=== PATIENT | female | born 1975 | race Caucasian/White ===

== ENCOUNTER 2016-11-17 17:34 | Outpatient (CLI) | payer OTHER | END 2016-11-17 17:35 | disposition home or self-care (01) | DX: M79.89 Other specified soft tissue disorders (principal) ==

== ENCOUNTER 2017-05-26 21:11 | Emergency (ER) | payer OTHER ==
[2017-05-26] MEDS ORDERED: DEXAMETHASONE 10 MG/ML VIAL PO STA (21:58)
[2017-05-26] MEDS ORDERED: CYCLOBENZAPRINE 10 MG TABLET PO STA (21:58)
[2017-05-26] MEDS ORDERED: oxyCOD/ACETAMIN 5 MG/325 MG TABLET PO STA (21:58)
[2017-05-26] MEDS ORDERED: CHERRY SYRUP 10 ML UDC PO ONE (22:11)
[2017-05-26] MEDS ORDERED: DEXAMETHASONE 10 MG/ML VIAL ONE (22:11)
[2017-05-26] MEDS ORDERED: CYCLOBENZAPRINE 10 MG TABLET PO ONE (22:11)
[2017-05-26] MEDS ORDERED: oxyCOD/ACETAMIN 5 MG/325 MG TABLET PO ONE (22:11)
--- NOTE | 2017-05-26 22:22 | ED Physician Documentation ---
PD HPI BACK INJURY - Stated complaint Stated Complaint: GLF/BACK PX - History obtained from History obtained from: Patient - History of Present Illness Location: Right, Lower Type of injury: Fall Where injury occurred: Home Timing - onset: Last night Timing - duration: Days (1) Timing - details: Gradual onset Pain level max: 8 Pain level now: 6 Quality: Pain, Spasm, Similar to prior episodes Improved by: Rest Worsened by: Moving Associated symptoms: No: Fever, Weakness, Numbness, Incontinent of urine, Unable to urinate, Hematuria, Incontinent of stool Similar symptoms before: Diagnosis (chronic back pain) Recently seen: Not recently seen - Additional information Additional information: Patient is a 41-year-old female who presents to the emergency department after a fall last night, she has hip and back pain. Not relieved by Aleve earlier today. Has a history of chronic back pain in the past. Pain is radiating down the right leg occasionally Review of Systems Constitutional: denies: Fever, Chills Nose: denies: Rhinorrhea / runny nose, Congestion Cardiac: denies: Chest pain / pressure Respiratory: denies: Cough GI: denies: Nausea, Vomiting, Diarrhea Skin: denies: Rash Musculoskeletal: denies: Neck pain Neurologic: denies: Focal weakness, Numbness, Seizure, Confused, Altered mental status, Headache PD PAST MEDICAL HISTORY - Past Medical History Past Medical History: Yes GI: None Psych: Anxiety Musculoskeletal: Chronic back pain, Other Other Past Medical History: Arthritis - Past Surgical History 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 HEENT: Myringotomy (tubes), Tonsil/Adenoidectomy - Present Medications Home Medications: Ambulatory Orders Medication Instructions Recorded Confirmed Cyclobenzaprine [Flexeril] 10 mg PO TID PRN #20 tablet 07/27/16 HYDROcod/ACETAM 5/325 [[place] 5/325] 1 - 2 ea PO Q6H PRN #14 tablet 07/27/16 Cyclobenzaprine [Flexeril] 10 mg PO TID PRN #20 tablet 05/26/17 Hydrocodone/Acetaminophen 1 - 2 each PO Q6H PRN #14 tablet 05/26/17 [Hydrocodon-Acetaminophen 5-325] - Allergies Allergies/Adverse Reactions: Allergies Allergy/AdvReac Type Severity Reaction Status Date / Time codeine Allergy Itching Verified 07/27/16 15:34 - Social History Does the pt smoke?: Yes Smoking Status: Current every day smoker Does the pt drink ETOH?: No Does the pt have substance abuse?: No - Immunizations Immunizations are current?: Yes - POLST Patient has POLST: No PD ED PE NORMAL - Vitals Vital signs reviewed: Yes - General General: Alert and oriented X 3, No acute distress, Well developed/nourished - HEENT HEENT: Atraumatic, PERRL, EOMI, Moist mucous membranes - Neck Neck: Supple, no meningeal sign, No bony TTP - Cardiac Cardiac: RRR, Strong equal pulses - Respiratory Respiratory: No respiratory distress, Clear bilaterally - Abdomen Abdomen: Soft, Non tender, Non distended - Back Back: No spinal TTP, Other (No midline spinal tenderness to palpation or percussion. Paraspinal spasm present right low thoracic through the low lumbar area.) - Derm Derm: Warm and dry - Extremities Extremities: Other (normal bilateral lower extremity patellar and ankle jerk reflexes. Normal great toe extension bilaterally) - Neuro Neuro: Alert and oriented X 3, administrative office assistant 2-12 intact, No motor deficit, No sensory deficit, Normal speech - Psych Psych: Normal mood, Normal affect Results - Vitals Vitals: Vital Signs - 24 hr 05/26/17 05/26/17 21:23 22:49 Temperature 36.6 C 36.4 C L Heart Rate 87 74 Respiratory 16 16 Rate Blood Pressure 128/78 118/79 O2 Saturation 100 97 Oxygen O2 Source Room air PD MEDICAL DECISION MAKING - ED course Complexity details: re-evaluated patient, considered differential (no cauda equina, no spinal epidural abscess, no fracture, no aortic dissection or evidence of aneursym rupture), d/w patient ED course: Patient is a 41-year-old female with acute on chronic back pain. Pain well controlled in the emergency department. Also appears to have a component was sciatica. Will trial on pain medications at home. No evidence of cauda equina, epidural abscess, fracture. Ambulating well and without a limp. Patient counseled regarding signs and symptoms for which I believe and urgent re- evaluation would be necessary. Patient with good understanding of and agreement to plan and is comfortable going home at this time This document was made in part using voice recognition software. While efforts are made to proofread this document, sound alike and grammatical errors may occur. Departure - Departure Disposition: 01 Home, Self Care Clinical Impression: Low back strain Qualifiers: Encounter type: initial encounter Qualified Code(s): S39.012A - Strain of muscle, fascia and tendon of lower back, initial encounter Sciatica Qualifiers: Laterality: right Qualified Code(s): M54.31 - Sciatica, right side Condition: Good Instructions: ED Sciatica, ED Low Back Pain Injury Follow-Up: RAMIRO GARCIA [Primary Care Provider] - Within 1 week Prescriptions: Cyclobenzaprine [Flexeril] 10 mg PO TID PRN #20 tablet PRN Reason: Spasms Hydrocodone/Acetaminophen [Hydrocodon-Acetaminophen 5-325] 1 - 2 each PO Q6H PRN #14 tablet PRN Reason: pain Comments: Return if you worsen. This should improve over the next few days. Do not drive or operate heavy machinery while taking the Flexeril or hydrocodone. Do not drink alcohol or drive while on narcotic pain medicine. Note that many narcotic pain relievers also contain tylenol/acetaminophen. Please ensure that your total dose of acetaminophen from all sources does not exceed 3 grams (3000mg) per day. You may constipated on this medication, take a stool softener such as "Colace" twice a day while you are on it. Also recommend a [id number] laxative such as senna or MiraLAX any day that you do not have a bowel movement. If you received narcotic pain medication in the emergency department, do not drive or operate machinery for the next 24 hours. Discharge Date/Time: 05/26/17 22:49
[2017-05-26 22:54] VITALS: BP 118/79
== END 2017-05-26 22:49 | disposition home or self-care (01) ==
LOC: ED 21:11
DX: S39.012A Strain of muscle, fascia and tendon of lower back, initial encounter (principal); W01.0XXA Fall on same level from slipping, tripping and stumbling without subsequent striking against object, initial encounter; Y92.019 Unspecified place in single-family (private) house as the place of occurrence of the external cause; M54.31 Sciatica, right side; M19.90 Unspecified osteoarthritis, unspecified site; F17.200 Nicotine dependence, unspecified, uncomplicated
CPT/HCPCS: 99283; A9270

== ENCOUNTER 2017-07-08 13:06 | Emergency (ER) | payer OTHER ==
--- NOTE | 2017-07-08 14:19 | ED Physician Documentation ---
PD HPI BACK PAIN - Stated complaint Stated Complaint: BACK PX - Chief complaint Chief Complaint: Back Pain - History obtained from History obtained from: Patient, Family - History of Present Illness Timing - onset: How many days ago (3) Timing - duration: Days (3) Timing - details: Gradual onset Pain level max: 9 Pain level now: 9 Location: Lower, Right, Left Quality: Pain, Spasm, Similar to prior episodes Associated symptoms: No: Fever, Weakness, Numbness, Incontinent of urine, Unable to urinate, Hematuria, Incontinent of stool Improves with: Rest Worsened by: Movement Contributing factors: Other (doesn't recall an injury) Similar symptoms before: Diagnosis ("bulging discs in my lumbar spine") Recently seen: Not recently seen - Additional information Additional information: Patient is a 42-year-old female presents to the emergency department complaining of increased lower back pain. Has a history of chronic back pain. Review of Systems Constitutional: denies: Fever, Chills Ears: denies: Ear pain Nose: denies: Rhinorrhea / runny nose, Congestion Throat: denies: Sore throat Cardiac: denies: Chest pain / pressure Respiratory: denies: Cough GI: denies: Abdominal Pain, Nausea, Vomiting, Diarrhea : denies: Dysuria, Frequency, Hesitancy, Now EGA Skin: denies: Rash Musculoskeletal: denies: Neck pain Neurologic: denies: Focal weakness, Numbness, Headache PD PAST MEDICAL HISTORY - Past Medical History Past Medical History: Yes GI: None Psych: Anxiety Musculoskeletal: Chronic back pain, Other - Past Surgical History 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 HEENT: Myringotomy (tubes), Tonsil/Adenoidectomy - Present Medications Home Medications: Ambulatory Orders Medication Instructions Recorded Confirmed Cyclobenzaprine [Flexeril] 10 mg PO TID PRN #20 tablet 07/08/17 Meloxicam [Mobic] 7.5 mg PO BID PRN #20 tablet 07/08/17 Oxycodone HCl/Acetaminophen 1 - 2 each PO Q6H PRN #14 tablet 07/08/17 [Percocet 5-325 mg Tablet] busPIRone [Buspar] 15 mg ORAL BID 07/08/17 07/08/17 - Allergies Allergies/Adverse Reactions: Allergies Allergy/AdvReac Type Severity Reaction Status Date / Time codeine Allergy Itching Verified 07/08/17 13:37 hydrocodone Allergy Headache Verified 07/08/17 13:37 - Social History Does the pt smoke?: Yes Smoking Status: Current every day smoker Does the pt drink ETOH?: No Does the pt have substance abuse?: No - Immunizations Immunizations are current?: Yes - POLST Patient has POLST: No PD ED PE NORMAL - Vitals Vital signs reviewed: Yes - General General: Alert and oriented X 3, No acute distress - HEENT HEENT: Moist mucous membranes - Neck Neck: Supple, no meningeal sign, No bony TTP - Cardiac Cardiac: RRR - Respiratory Respiratory: No respiratory distress, Clear bilaterally - Abdomen Abdomen: Soft, Non tender, Non distended - Back Back: No spinal TTP - Derm Derm: Warm and dry - Extremities Extremities: No tenderness to palpate, Normal ROM s pain, Other (normal bilateral lower extremity patellar and ankle jerk reflexes. Normal great toe extension bilaterally) - Neuro Neuro: Alert and oriented X 3, clinical laboratory scientist 2-12 intact, No motor deficit, No sensory deficit, Normal speech - Psych Psych: Normal mood, Normal affect Results - Vitals Vitals: Vital Signs - 24 hr 07/08/17 07/08/17 13:16 15:08 Temperature 36.8 C Heart Rate 96 73 Respiratory 18 16 Rate Blood Pressure 129/74 104/70 O2 Saturation 98 99 Oxygen O2 Source Room air PD MEDICAL DECISION MAKING - ED course Complexity details: re-evaluated patient, considered differential (no cauda equina, no spinal epidural abscess, no fracture, no aortic dissection or evidence of aneursym rupture), d/w patient, d/w family ED course: Patient is a 42-year-old female with acute on chronic back pain. She was given Toradol, oxycodone, dexamethasone and Flexeril here. Pain greatly improved. Will place on pain medication and muscle relaxants for home and follow-up with her PCP. She does have a long history of back pain. Does not use IV drugs. No evidence of cauda equina or epidural abscess. Patient counseled regarding signs and symptoms for which I believe and urgent re-evaluation would be necessary. Patient with good understanding of and agreement to plan and is comfortable going home at this time This document was made in part using voice recognition software. While efforts are made to proofread this document, sound alike and grammatical errors may occur. Departure - Departure Disposition: 01 Home, Self Care Clinical Impression: Low back strain Qualifiers: Encounter type: initial encounter Qualified Code(s): S39.012A - Strain of muscle, fascia and tendon of lower back, initial encounter Condition: Good Instructions: ED Sprain Strain Lumbar Follow-Up: RAMIRO GARCIA [Primary Care Provider] - Within 1 week Prescriptions: Cyclobenzaprine [Flexeril] 10 mg PO TID PRN #20 tablet PRN Reason: Spasms Meloxicam [Mobic] 7.5 mg PO BID PRN #20 tablet PRN Reason: back pain Oxycodone HCl/Acetaminophen [Percocet 5-325 mg Tablet] 1 - 2 each PO Q6H PRN # 14 tablet PRN Reason: pain Comments: Return if you worsen. This should improve over the next few days. Do not drink alcohol or drive while on narcotic pain medicine. Note that many narcotic pain relievers also contain tylenol/acetaminophen. Please ensure that your total dose of acetaminophen from all sources does not exceed 3 grams (3000mg) per day. You may constipated on this medication, take a stool softener such as "Colace" twice a day while you are on it. Also recommend a [id number] laxative such as senna or MiraLAX any day that you do not have a bowel movement. If you received narcotic pain medication in the emergency department, do not drive or operate machinery for the next 24 hours. Discharge Date/Time: 07/08/17 15:08
[2017-07-08] MEDS ORDERED: oxyCODONE 5 MG TABLET ONE (14:34)
[2017-07-08] MEDS ORDERED: DEXAMETHASONE 10 MG/ML VIAL ONE (14:35)
[2017-07-08] MEDS ORDERED: CYCLOBENZAPRINE 10 MG TABLET PO ONE (14:35)
[2017-07-08] MEDS ORDERED: KETOROLAC 60 MG/2 ML VIAL ONE (14:35)
[2017-07-08] MEDS: oxyCODONE 5 MG TABLET PO STA (14:40)
[2017-07-08] MEDS: CYCLOBENZAPRINE 10 MG TABLET PO STA (14:40)
[2017-07-08] MEDS: DEXAMETHASONE 10 MG/ML VIAL PO STA (14:40)
[2017-07-08] MEDS: KETOROLAC 60 MG/2 ML VIAL IM STA (14:41)
[2017-07-08 15:09] VITALS: BP 104/70
== END 2017-07-08 15:08 | disposition home or self-care (01) ==
LOC: ED 13:06
DX: S39.012A Strain of muscle, fascia and tendon of lower back, initial encounter (principal); X58.XXXA Exposure to other specified factors, initial encounter; G89.29 Other chronic pain; F17.200 Nicotine dependence, unspecified, uncomplicated
CPT/HCPCS: 96372; 99282; 99284

== ENCOUNTER 2017-11-18 07:18 | Emergency (ER) | payer OTHER ==
[2017-11-18] MEDS ORDERED: ACETAMINOPHEN 1,000 MG/100 ML 100 ML IV STA (07:40)
--- NOTE | 2017-11-18 07:44 | ED Physician Documentation ---
History of Present Illness - Stated complaint Stated Complaint: ABD PX - Chief complaint Chief Complaint: Abd Pain - Additonal information Additional information: hx from pt 42 female s/p tubal ligation no other abd surgeries LMP 11/04 but then spotting about a week later which is unusual no vag dc awakened today with RLQ pain 7-8/10 crampy waxes and wanes no rad to back no fever no NVD no dysuria hematuria Review of Systems Constitutional: denies: Fever Cardiac: denies: Chest pain / pressure Respiratory: denies: Dyspnea, Cough GI: reports: Abdominal Pain. denies: Nausea, Vomiting, Diarrhea : reports: LMP (11/04). 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 HEENT: Myringotomy (tubes), Tonsil/Adenoidectomy - Present Medications Home Medications: Ambulatory Orders Medication Instructions Recorded Confirmed busPIRone [Buspar] 15 mg ORAL BID 07/08/17 11/18/17 clonazePAM [KlonoPIN] 1 mg PO BID PRN 11/18/17 11/18/17 - Allergies Allergies/Adverse Reactions: Allergies Allergy/AdvReac Type Severity Reaction Status Date / Time codeine Allergy Itching Verified 11/18/17 07:24 hydrocodone Allergy Headache Verified 11/18/17 07:24 - Social History Does the pt smoke?: Yes Smoking Status: Current every day smoker Does the pt drink ETOH?: No Does the pt have substance abuse?: No - Immunizations Immunizations are current?: Yes - POLST Patient has POLST: No PD ED PE NORMAL - Vitals Vital signs reviewed: Yes - Neck Neck: Supple, no meningeal sign - Cardiac Cardiac: RRR - Respiratory Respiratory: No respiratory distress - Abdomen Abdomen: Soft, Other (TTP lateral to mcburneys, no guarding, mild rebound, no palp inguinal hernia) - Derm Derm: Normal color - Neuro Neuro: Alert and oriented X 3 Results - Vitals Vitals: Vital Signs - 24 hr 11/18/17 11/18/17 07:21 10:22 Temperature 36.4 C L Heart Rate 94 66 Respiratory 16 15 Rate Blood Pressure 132/82 H 120/68 O2 Saturation 100 99 Oxygen O2 Source Room air - Labs Labs: Laboratory Tests 11/18/17 11/18/17 11/18/17 07:20 07:52 07:52 WBC 5.1 RBC 4.25 Hgb 12.7 Hct 37.1 MCV 87.5 MCH 30.0 MCHC 34.3 RDW 12.8 Plt Count 292 MPV 7.1 L Neut # 3.3 Lymph # 1.1 L Union # 0.5 Eos # 0.1 Baso # 0.0 Absolute Nucleated RBC 0.00 Nucleated RBC % 0.0 Sodium 131 L Potassium 3.9 Chloride 94 L Carbon Dioxide 24 Anion Gap 13.0 BUN 8 Creatinine 0.8 Estimated GFR (MDRD) 79 L Glucose 89 Calcium 9.6 Total Bilirubin 0.2 AST 17 ALT 12 Alkaline Phosphatase 46 Total Protein 7.3 Albumin 4.4 Globulin 2.9 Albumin/Globulin Ratio 1.5 Lipase 30 Urine Color LT. YELLOW Urine Clarity CLEAR Urine pH 6.0 Ur Specific Exline <=1.005 Urine Protein NEGATIVE Urine Glucose (UA) NEGATIVE Urine Ketones NEGATIVE Urine Occult Blood NEGATIVE Urine Nitrite NEGATIVE Urine Bilirubin NEGATIVE Urine Urobilinogen 0.2 (NORMAL) Ur Leukocyte Esterase NEGATIVE Ur Microscopic Review NOT INDICATED Urine Culture Comments NOT INDICATED Urine HCG, Qual NEGATIVE - Rads (name of study) abd sono Radiology: See rad report (nl R kidney, no FF, non vis appendix but no secondary signs of acute appy) pelvic sono Radiology: See rad report (fundal leuimyoma 2 cm nelida ovarian follicles, nl ovarian flow, no FF) PD MEDICAL DECISION MAKING - ED course ED course: after only ofirmev in ER, serial abd exams = no RLQ TTP at all any more given nl WBC, nl sono s secondary signs of appy, and reassuring serial abd exams in ER do not feel prudent to expose pt to radiation of CT and feel best sexton of action is dc home with appy precautions to return if worse Departure - Departure Disposition: 01 Home, Self Care Clinical Impression: Abdominal pain Qualifiers: Abdominal location: right lower quadrant Qualified Code(s): R10.31 - Right lower quadrant pain Condition: Good Instructions: ED Abdominal Pain Appendx Poss Comments: Your labs and ultrasound are reassuring. The liver kidney and pancreas testes were all fine. The ultrasound showed a fibroid but no other problems. The appendic could not be seen on ultrasound but no local inflammation to suggest appendicitis was seen and that is reassuiring. Since you pain is better now it seem the most prudent plan would be to let you go home and see how things progress over the next 24 hr. If your pain gets worse, you have a fever, you are vomiting and can't eat or any other concerns, please come back to the ER and we can do the CT after all. For today recommend a clear liquid diet (and coffee is OK) and maybe some toast. If you are better, you can advance your diet tomorrow Forms: Activity restrictions
[2017-11-18 07:54] LABS: BILIRUBIN,URINE NEGATIVE (NEGATIVE); GLUCOSE, URINE (UA) NEGATIVE (NEGATIVE); KETONES,URINE (UA) NEGATIVE (NEGATIVE); LEUKOCYTE ESTERASE, URINE NEGATIVE (NEGATIVE); NITRITE,URINE NEGATIVE (NEGATIVE); OCCULT BLOOD,URINE NEGATIVE (NEGATIVE); PROTEIN,URINE NEGATIVE (NEGATIVE); UROBILINOGEN,URINE 0.2 (NORMAL) E.U./dL (NORMAL)
[2017-11-18 07:58] LABS: CLARITY,URINE CLEAR (CLEAR); HCG UR QUAL NEGATIVE
[2017-11-18 08:17] LABS: EOSINOPHILS # (AUTO) 0.1 10^3/uL (0.0-0.7); EOSINOPHILS % (AUTO) 2.4 %; HGB - HEMOGLOBIN 12.7 g/dL (12.0-16.0); LYMPHOCYTES # (AUTO) 1.1 10^3/uL (1.5-3.5); LYMPHOCYTES % (AUTO) 22.1 %; MEAN CORPUSCULAR HGB CONC 34.3 g/dL (32.0-36.0); MEAN CORPUSCULAR VOLUME 87.5 fL (81.0-99.0); MEAN PLATELET VOLUME 7.1 fL (7.9-10.8); MONOCYTES # (AUTO) 0.5 10^3/uL (0.0-1.0); MONOCYTES % (AUTO) 9.2 %; NEUTROPHILS # (AUTO) 3.3 10^3/uL (1.5-6.6); NEUTROPHILS % (AUTO) 65.3 %; PLT - PLATELET COUNT 292 10^3/uL (130-450); RED BLOOD COUNT 4.25 10^6/uL (4.20-5.40); RED CELL DISTRIBUTION WIDTH 12.8 % (12.0-15.0); WHITE BLOOD COUNT 5.1 x10^3/uL (4.8-10.8)
[2017-11-18 08:37] LABS: ALBUMIN 4.4 g/dL (3.2-5.5); ALBUMIN/GLOBULIN RATIO 1.5 (1.0-2.2); BILIRUBIN,TOTAL 0.2 mg/dL (0.2-1.0); CALCIUM 9.6 mg/dL (8.5-10.3); CREATININE 0.8 mg/dL (0.4-1.0); TOTAL PROTEIN 7.3 g/dL (6.7-8.2)
--- NOTE | 2017-11-18 11:08 | Ultrasound Report ---
DATE OF SERVICE: 11/18/2017 PELVIC ULTRASOUND WITH TRANSVAGINAL AND DOPPLER: 11/18/2017 CLINICAL INDICATION: Right lower quadrant pain. TECHNIQUE: Transabdominal pelvic ultrasound performed for global evaluation. Transvaginal pelvic ultrasound performed for detailed evaluation. Real-time scanning performed and static images obtained with Doppler. FINDINGS: The uterus is anteverted, measuring 8.8 x 5.9 x 4.9 cm. The endometrial echo complex measures 11 mm. There is a 2.0 x 1.5 x 1.5 cm fundal intramural leiomyoma. The right ovary measures 4.5 x 3.0 x 3.0 cm, and demonstrates follicles. Normal flow is seen to the ovarian parenchyma. The left ovary measures 4.7 x 3.2 x 3.0 cm, and demonstrates follicles. Normal flow is seen to the ovarian parenchyma. No free fluid is present. IMPRESSION: A 2 CM FUNDAL INTRAMURAL LEIOMYOMA. NORMAL OVARIES, WITH NORMAL FLOW. TD: 11/18/2017 12:08
--- NOTE | 2017-11-18 11:12 | Ultrasound Report ---
DATE OF SERVICE: 11/18/2017 LIMITED ABDOMINAL ULTRASOUND: 11/18/2017 CLINICAL INDICATION: Right lower quadrant pain, question hydronephrosis or appendicitis. TECHNIQUE: Real-time scanning was performed with registration representative static images obtained. FINDINGS: The right kidney measures 11.4 x 4.1 x 6.0 cm. No hydronephrosis, focal renal lesion, or perinephric collection is seen. The visualized liver and gallbladder appear unremarkable. No free fluid is seen. Scanning of the right lower quadrant does not demonstrate the appendix. No abnormal pericecal fluid collection is seen. No free fluid is seen in the right lower quadrant. IMPRESSION: NORMAL RIGHT KIDNEY. NO FREE FLUID. NONVISUALIZATION OF THE APPENDIX, BUT NO SECONDARY SIGNS OF ACUTE APPENDICITIS. TD: 11/18/2017 12:11
[2017-11-18 11:38] VITALS: BP 106/59
== END 2017-11-18 11:48 | disposition home or self-care (01) ==
LOC: ED 07:18
DX: R10.31 Right lower quadrant pain (principal); F17.200 Nicotine dependence, unspecified, uncomplicated; Z98.51 Tubal ligation status
CPT/HCPCS: 36415; 76705; 76830; 76856; 80053; 81003; 81025; 83690; 85025; 93975; 96365; 99283; J0131; 81001; 87086

== ENCOUNTER 2017-12-17 20:54 | Emergency (ER) | payer OTHER ==
--- NOTE | 2017-12-17 21:55 | ED Physician Documentation ---
PD HPI BACK PAIN - Stated complaint Stated Complaint: BACK PX - Chief complaint Chief Complaint: Back Pain - History obtained from History obtained from: Patient - History of Present Illness Timing - onset: How many weeks ago (2 1/2) Timing - duration: Weeks Timing - details: Gradual onset, Still present, Waxing and waning (worse the past few days despite NSAIDs.) Location: Lower, Right Quality: Pain, Spasm, Sharp Associated symptoms: Other (pain at right SI area radiating down lateral thigh and to lower leg. Some tingling in middle toes at times, not consistent. No weakness of leg.). No: Fever, Weakness, Numbness, Incontinent of urine Improves with: Rest. No: Meds Worsened by: Movement, Twisting, Palpation Contributing factors: Other (has had disc problems for awhile with intermittent problems. No recent new injury.). No: Lifting, Twisting, Trauma, Anticoagulated Similar symptoms before: Diagnosis (disc problems in back with sciatic symptoms at times.) Recently seen: Clinic (seen by her PCP who Rx just NSAIDs) Review of Systems Constitutional: denies: Fever, Chills, Myalgias Cardiac: denies: Chest pain / pressure, Palpitations Respiratory: denies: Dyspnea, Cough GI: denies: Abdominal Pain, Vomiting, Constipation, Diarrhea : denies: Incontinent Skin: denies: Rash, Lesions PD PAST MEDICAL HISTORY - Past Medical History Past Medical History: Yes Cardiovascular: None Respiratory: None Neuro: None Endocrine/Autoimmune: None GI: None Psych: Anxiety Musculoskeletal: Chronic back pain, Other - Past Surgical 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 HEENT: Myringotomy (tubes), Tonsil/Adenoidectomy - Present Medications Home Medications: Ambulatory Orders Medication Instructions Recorded Confirmed busPIRone [Buspar] 15 mg ORAL BID 07/08/17 12/17/17 clonazePAM [KlonoPIN] 1 mg PO QPM PRN 11/18/17 12/17/17 Methocarbamol [Robaxin] 500 mg PO Q6H PRN #25 tablet 12/17/17 Oxycodone HCl/Acetaminophen 1 each PO Q6H PRN #20 tablet 12/17/17 [Percocet 5-325 mg Tablet] - Allergies Allergies/Adverse Reactions: Allergies Allergy/AdvReac Type Severity Reaction Status Date / Time codeine Allergy Itching Verified 12/17/17 21:07 hydrocodone Allergy Headache Verified 12/17/17 21:07 nickel Allergy Unknown Verified 12/17/17 21:20 - Social History Does the pt smoke?: Yes Smoking Status: Current every day smoker Does the pt drink ETOH?: No Does the pt have substance abuse?: No - Immunizations Immunizations are current?: Yes - POLST Patient has POLST: No PD ED PE NORMAL - Vitals Vital signs reviewed: Yes - General General: Alert and oriented X 3, Well developed/nourished, Other (appears uncomfortable with guarded ROM of the low back, mainly low right. ) - Abdomen Abdomen: Soft, Non tender - Back Back: No CVA TTP - Derm Derm: Normal color, Warm and dry - Neuro Neuro: Alert and oriented X 3, No motor deficit, No sensory deficit, Normal speech, Other (normal reflexes at knees. ) Results - Vitals Vitals: Vital Signs - 24 hr 12/17/17 12/17/17 21:05 23:02 Temperature 37.5 C Heart Rate 103 H 86 Respiratory 18 18 Rate Blood Pressure 121/65 111/70 O2 Saturation 99 98 Oxygen O2 Source Room air PD MEDICAL DECISION MAKING - ED course Complexity details: considered differential (low back pain with history of such and no red flags. Trigger point injection at right upper SI with Marcaine and Kenalog. ), d/w patient Departure - Departure Disposition: 01 Home, Self Care Clinical Impression: Right low back pain Qualifiers: Chronicity: acute Sciatica presence: with sciatica Sciatica laterality: sciatica of right side Qualified Code(s): M54.41 - Lumbago with sciatica, right side Condition: Stable Record reviewed to determine appropriate education?: Yes Instructions: ED Sciatica Follow-Up: RAMIRO GARCIA [Primary Care Provider] - Prescriptions: Methocarbamol [Robaxin] 500 mg PO Q6H PRN #25 tablet PRN Reason: Spasms Oxycodone HCl/Acetaminophen [Percocet 5-325 mg Tablet] 1 each PO Q6H PRN #20 tablet PRN Reason: Pain Comments: Heat and gentle stretching for the low back to reduce stiffness and spasming. Continue Naproxen or Ibuprofen 2-3 times a day for the next week. Robaxin muscle relaxant 3 times a day for the next week or so. Add Percocet if needed for pain. Recheck if not improving over the next several days to week. Discharge Date/Time: 12/17/17 23:03
[2017-12-17] MEDS ORDERED: KETOROLAC 60 MG/2 ML VIAL IM STA (22:08)
[2017-12-17] MEDS ORDERED: METHOCARBAMOL 500 MG TABLET PO STA (22:08)
[2017-12-17] MEDS ORDERED: TRIAMCINOLONE 40 MG/ML VIAL IM STA (22:08)
[2017-12-17] MEDS ORDERED: oxyCOD/ACETAMIN 5 MG/325 MG TABLET PO STA (22:08)
[2017-12-17 23:03] VITALS: BP 111/70
== END 2017-12-17 23:03 | disposition home or self-care (01) ==
LOC: ED 20:54
DX: M54.41 Lumbago with sciatica, right side (principal); F17.200 Nicotine dependence, unspecified, uncomplicated
CPT/HCPCS: 20552; 99283; A9270

== ENCOUNTER 2018-04-28 00:14 | Emergency (ER) | payer OTHER ==
--- NOTE | 2018-04-28 03:08 | ED Physician Documentation ---
PD HPI FEMALE - Stated complaint Stated Complaint: FEMALE - Chief complaint Chief Complaint: Abd Pain - History obtained from History obtained from: Patient - History of Present Illness Timing - onset: Yesterday Timing - details: Gradual onset, Waxing and waning Pain level max: 4 Associated symptoms: Pelvic pain, Vaginal bleeding Contributing factors: IUD (placed 6 days ago), Tubal ligation. No: - Additional information Additional information: had IUD placed 6 days ago and uterine biopsy same procedure. She c/o 1-2 days of cramping pelvic pain; has had vaginal bleeding since procedure. She is in long-term monogamous relationship (spouse of over 10 years) Review of Systems Constitutional: denies: Fever, Chills, Sweats GI: denies: Abdominal Pain (pelvic pain (not abdominal pain per se)), Nausea, Vomiting : reports: Vaginal bleeding, Control (IUD, tubal ligation). 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 HEENT: Myringotomy (tubes), Tonsil/Adenoidectomy - Present Medications Home Medications: Ambulatory Orders Medication Instructions Recorded Confirmed Levonorgestrel [Mirena] 04/28/18 oxyCODONE/ACET 5/325 [Percocet 5 1 - 2 each PO Q6H PRN #14 tablet 04/28/18 mg/325 mg] - Allergies Allergies/Adverse Reactions: Allergies Allergy/AdvReac Type Severity Reaction Status Date / Time bee venom protein (honey bee) Allergy Edema Verified 04/28/18 00:27 codeine Allergy Itching Verified 04/28/18 00:26 hydrocodone Allergy Headache Verified 04/28/18 00:26 nickel Allergy Unknown Verified 04/28/18 00:26 - Social History Does the pt smoke?: Yes Smoking Status: Current every day smoker Does the pt drink ETOH?: Yes Does the pt have substance abuse?: No - Immunizations Immunizations are current?: Yes - POLST Patient has POLST: No PD ED PE NORMAL - Vitals Vital signs reviewed: Yes - General General: Alert and oriented X 3, No acute distress, Well developed/nourished - Abdomen Abdomen: Normal bowel sounds, Soft, Non tender, Non distended, No organomegaly - Back Back: No CVA TTP - Derm Derm: Normal color, Warm and dry - Extremities Extremities: No edema PD ED PE EXPANDED - Female Female : Vaginal Bleeding (sm. amount dark red blood in vagina with scant amount of bright red blood from cervix subsequent to removal of IUD. 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 No: Skin lesions, Vaginal Discharge, CMT, Tissue present, Adnexal Tenderness Results - Vitals Vitals: Vital Signs - 24 hr 04/28/18 04/28/18 00:20 03:48 Temperature 36.5 C Heart Rate 103 H 82 Respiratory 18 18 Rate Blood Pressure 139/76 H 125/88 H O2 Saturation 98 98 Oxygen O2 Source Room air PD MEDICAL DECISION MAKING - ED course Complexity details: reviewed results, re-evaluated patient, considered differential, d/w patient ED course: Patient's primary concern was infection, and there is no evidence at this time of an infectious process. She was interested in having the IUD removed, and thus this was done during ED visit - Sepsis Event Vital Signs: Vital Signs - 24 hr 04/28/18 04/28/18 00:20 03:48 Temperature 36.5 C Heart Rate 103 H 82 Respiratory 18 18 Rate Blood Pressure 139/76 H 125/88 H O2 Saturation 98 98 Oxygen O2 Source Room air Departure - Departure Disposition: 01 Home, Self Care Clinical Impression: Pelvic pain Condition: Good Instructions: ED Pelvic Pain [facility] Follow-Up: RAMIRO GARCIA [Primary Care Provider] - Within 1 week Prescriptions: oxyCODONE/ACET 5/325 [Percocet 5 mg/325 mg] 1 - 2 each PO Q6H PRN #14 tablet PRN Reason: Pain Discharge Date/Time: 04/28/18 03:48
[2018-04-28] MEDS ORDERED: oxyCOD/ACETAMIN 5 MG/325 MG TABLET PO STA (03:34)
[2018-04-28 03:49] VITALS: BP 125/88
== END 2018-04-28 03:48 | disposition home or self-care (01) ==
LOC: ED 00:14
DX: R10.2 Pelvic and perineal pain (principal); N93.9 Abnormal uterine and vaginal bleeding, unspecified
CPT/HCPCS: 58301; 99283; A9270

== ENCOUNTER 2018-10-19 10:42 | Emergency (ER) | payer OTHER ==
[2018-10-19 11:38] LABS: BILIRUBIN,URINE NEGATIVE (NEGATIVE); GLUCOSE, URINE (UA) NEGATIVE (NEGATIVE); KETONES,URINE (UA) NEGATIVE (NEGATIVE); LEUKOCYTE ESTERASE, URINE NEGATIVE (NEGATIVE); NITRITE,URINE NEGATIVE (NEGATIVE); OCCULT BLOOD,URINE NEGATIVE (NEGATIVE); PROTEIN,URINE NEGATIVE (NEGATIVE); UROBILINOGEN,URINE 0.2 (NORMAL) E.U./dL (NORMAL)
[2018-10-19 11:39] LABS: CLARITY,URINE CLEAR (CLEAR)
[2018-10-19] MEDS ORDERED: HYDROmorphone 1 MG/ML CARPUJECT IVP STA ×2 (12:21→14:04)
[2018-10-19] MEDS ORDERED: KETOROLAC 60 MG/2 ML VIAL IVP STA (12:21)
--- NOTE | 2018-10-19 12:23 | ED Physician Documentation ---
PD HPI ABD PAIN - Stated complaint Stated Complaint: RIGHT SIDE PX - Chief complaint Chief Complaint: Abd Pain - History obtained from History obtained from: Patient - History of Present Illness Timing - onset: Other (This is a 43-year-old woman with history of trigeminal neuralgia and tubal ligation, no other abdominal surgeries. For the past 2 weeks she had been having intermittent right lower quadrant pain that is nonmigratory and not associated with nausea, fevers, urinary complaints, discharge, or trouble with her bowel movements. Her LMP was the 15th of last month. She is not quite late yet. Today the pain became more constant and severe.) Recently seen: Clinic (She says she had a CAT scan for a different issue, actually left flank pain more than this about 6 days ago. She does not know the formal reading but was told by nurse that she had pelvic free fluid. They did not comment on her appendix or her ovaries.) Review of Systems Ten Systems: 10 systems reviewed and negative Constitutional: denies: Fever, Chills Cardiac: reports: Reviewed and negative Respiratory: reports: Reviewed and negative GI: reports: Abdominal Pain. 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 HEENT: Myringotomy (tubes), Tonsil/Adenoidectomy - Present Medications Home Medications: Ambulatory Orders Medication Instructions Recorded Confirmed Gabapentin [Neurontin] 200 mg PO TID 10/19/18 10/19/18 clonazePAM [Clonazepam] 1 mg PO BID 10/19/18 10/19/18 tiZANidine [Zanaflex] 4 mg PO Q8H 10/19/18 10/19/18 - Allergies Allergies/Adverse Reactions: Allergies Allergy/AdvReac Type Severity Reaction Status Date / Time bee venom protein (honey bee) Allergy Edema Verified 04/28/18 00:27 codeine Allergy Itching Verified 04/28/18 00:26 hydrocodone Allergy Headache Verified 04/28/18 00:26 nickel Allergy Unknown Verified 04/28/18 00:26 - Social History Does the pt smoke?: Yes Smoking Status: Current every day smoker Does the pt drink ETOH?: Yes Does the pt have substance abuse?: No - Immunizations Immunizations are current?: Yes - POLST Patient has POLST: No PD ED PE NORMAL - Vitals Vital signs reviewed: Yes - General General: Alert and oriented X 3, Other (Appears uncomfortable) - HEENT HEENT: PERRL, EOMI - Neck Neck: Supple, no meningeal sign, No bony TTP - Cardiac Cardiac: RRR, No murmur - Respiratory Respiratory: No respiratory distress, Clear bilaterally - Abdomen Abdomen: Other (Mild right lower quadrant and right pelvic tenderness without surgical signs, negative Rovsing sign.) - Back Back: No CVA TTP, No spinal TTP - Derm Derm: Normal color, Warm and dry - Extremities Extremities: No edema, No calf tenderness / cord - Neuro Neuro: Alert and oriented X 3, Normal speech Results - Vitals Vitals: Vital Signs - 24 hr 10/19/18 10/19/18 11:15 13:33 Temperature 36 C L Heart Rate 101 H 83 Respiratory 16 18 Rate Blood Pressure 123/74 149/59 H O2 Saturation 99 100 Oxygen O2 Source Room air - Labs Labs: Laboratory Tests 10/19/18 10/19/18 10/19/18 11:24 11:24 11:39 WBC 4.8 RBC 4.23 Hgb 12.6 Hct 36.9 L MCV 87.3 MCH 29.7 MCHC 34.0 RDW 14.2 Plt Count 311 MPV 7.3 L Neut # (Auto) 3.4 Lymph # (Auto) 0.9 L [place] # (Auto) 0.4 Eos # (Auto) 0.1 Baso # (Auto) 0.1 Absolute Nucleated RBC 0.00 Nucleated RBC % 0.0 Sodium Potassium Chloride Carbon Dioxide Anion Gap BUN Creatinine Estimated GFR (MDRD) Glucose Calcium Total Bilirubin AST ALT Alkaline Phosphatase Total Protein Albumin Globulin Albumin/Globulin Ratio Lipase Urine Color LIGHT YELLOW Urine Clarity CLEAR Urine pH 7.0 Ur Specific [place] <=1.005 <=1.005 Urine Protein NEGATIVE Urine Glucose (UA) NEGATIVE Urine Ketones NEGATIVE Urine Occult Blood NEGATIVE Urine Nitrite NEGATIVE Urine Bilirubin NEGATIVE Urine Urobilinogen 0.2 (NORMAL) Ur Leukocyte Esterase NEGATIVE Ur Microscopic Review NOT INDICATED Urine Culture Comments NOT INDICATED Urine HCG, Qual NEGATIVE 10/19/18 11:39 WBC RBC Hgb Hct MCV MCH MCHC RDW Plt Count MPV Neut # (Auto) Lymph # (Auto) [place] # (Auto) Eos # (Auto) Baso # (Auto) Absolute Nucleated RBC Nucleated RBC % Sodium 137 Potassium 3.8 Chloride 105 Carbon Dioxide 26 Anion Gap 6.0 BUN 9 Creatinine 0.8 Estimated GFR (MDRD) 79 L Glucose 86 Calcium 8.8 Total Bilirubin 0.4 AST 16 ALT 12 Alkaline Phosphatase 42 Total Protein 6.7 Albumin 4.3 Globulin 2.4 Albumin/Globulin Ratio 1.8 Lipase 31 Urine Color Urine Clarity Urine pH Ur Specific [place] Urine Protein Urine Glucose (UA) Urine Ketones Urine Occult Blood Urine Nitrite Urine Bilirubin Urine Urobilinogen Ur Leukocyte Esterase Ur Microscopic Review Urine Culture Comments Urine HCG, Qual - Rads (name of study) CT A/P Radiology: EMP read contemporaneously (negative) PD MEDICAL DECISION MAKING - ED course ED course: 43-year-old woman with right lower quadrant pain, main concern was for appendicitis but this is not evidence on CT or lab work. The CT was read as normal. Note we did a CT because we were unable to get the results from the makerist based on Saturday. Also she had persistent and worse pain. Although the CT was read as normal to my eye she does have a very large bladder but urinated immediately after the CT per her and also has a generous load of stool and gas which may be causative. She has magnesium citrate at home and she will try that. Departure - Departure Disposition: 01 Home, Self Care Clinical Impression: Abdominal pain Qualifiers: Abdominal location: right lower quadrant Qualified Code(s): R10.31 - Right lower quadrant pain Condition: Good Record reviewed to determine appropriate education?: Yes Instructions: ED Abdominal Pain Unkn Cause Comments: Take the magnesium citrate as discussed. Return for new or worsening symptoms. Follow-up with your doctor this week if not better. Your blood pressure was elevated today on check into the emergency department. This does not mean that you have hypertension, it is a common phenomenon to come to the emergency department and have elevated blood pressure. I recommend that you see your primary care physician within the week to have it rechecked when you are feeling better.
[2018-10-19 12:28] LABS: BASOPHILS # (AUTO) 0.1 10^3/uL (0.0-0.1); BASOPHILS % (AUTO) 1.1 %; EOSINOPHILS # (AUTO) 0.1 10^3/uL (0.0-0.7); EOSINOPHILS % (AUTO) 1.2 %; HGB - HEMOGLOBIN 12.6 g/dL (12.0-16.0); LYMPHOCYTES # (AUTO) 0.9 10^3/uL (1.5-3.5); LYMPHOCYTES % (AUTO) 18.9 %; MEAN CORPUSCULAR HEMOGLOBIN 29.7 pg (27.0-31.0); MEAN CORPUSCULAR VOLUME 87.3 fL (81.0-99.0); MEAN PLATELET VOLUME 7.3 fL (7.9-10.8); MONOCYTES # (AUTO) 0.4 10^3/uL (0.0-1.0); MONOCYTES % (AUTO) 8.5 %; NEUTROPHILS # (AUTO) 3.4 10^3/uL (1.5-6.6); NEUTROPHILS % (AUTO) 70.3 %; PLT - PLATELET COUNT 311 10^3/uL (130-450); RED BLOOD COUNT 4.23 10^6/uL (4.20-5.40); RED CELL DISTRIBUTION WIDTH 14.2 % (12.0-15.0); WHITE BLOOD COUNT 4.8 x10^3/uL (4.8-10.8)
[2018-10-19 12:37] LABS: ALBUMIN 4.3 g/dL (3.2-5.5); ALBUMIN/GLOBULIN RATIO 1.8 (1.0-2.2); BILIRUBIN,TOTAL 0.4 mg/dL (0.2-1.0); CALCIUM 8.8 mg/dL (8.5-10.3); CREATININE 0.8 mg/dL (0.4-1.0); TOTAL PROTEIN 6.7 g/dL (6.7-8.2)
[2018-10-19 12:38] LABS: HCG UR QUAL NEGATIVE
[2018-10-19] MEDS ORDERED: IOVERSOL 320 100 ML VIAL IVP ONE ×2 (13:02→13:16)
--- NOTE | 2018-10-19 13:45 | CT Report ---
Reason: IV only, RLQ pain Procedure Date: 10/19/2018 Accession Number: [id number] / [id number] Procedure: CT - Abdomen/Pelvis W/ CPT Code: FULL RESULT: EXAM: CT ABDOMEN AND PELVIS EXAM DATE: 10/19/2018 01:13 PM. CLINICAL HISTORY: IV only, RLQ pain. COMPARISONS: PEL NON OB W/TV DOP 11/18/2017 9:16 AM ABDOMEN LIMITED 11/18/2017 8:53 AM. TECHNIQUE: Routine helical CT imaging was performed through the abdomen and pelvis. IV contrast: 79 cc Optiray 320. Enteric contrast: No. Reconstructions: Coronal and sagittal. In accordance with CT protocol optimization, one or more of the following dose reduction techniques were utilized for this exam: automated exposure control, adjustment of mA and/or KV based on patient size, or use of iterative reconstructive technique. FINDINGS: Lung Bases: Lung bases are clear. No pleural or pericardial effusions. No cardiac enlargement. Small hiatal hernia noted. Liver: Normal. No masses. Gallbladder/Bile Ducts: Unremarkable. Spleen: Normal. Pancreas: Normal. Adrenal Glands: Normal. Kidneys: Normal. No masses or hydronephrosis. Peritoneal Cavity/Bowel: No ascites, pneumoperitoneum, adenopathy or mass. Moderate amount of stool throughout the colon. No acute inflammation. Remaining stomach, small and large bowel are normal. The appendix is well visualized and normal. Pelvic Organs: Normal. The bladder and visualized pelvic organs are within normal limits. Vasculature: No aneurysms or other significant abnormality. Bones: No significant abnormality. Other: None. IMPRESSION: No acute abnormality in the abdomen or pelvis. RADIA
[2018-10-19 14:25] VITALS: BP 101/56
== END 2018-10-19 14:40 | disposition home or self-care (01) ==
LOC: ED 10:42
DX: R10.31 Right lower quadrant pain (principal); R03.0 Elevated blood-pressure reading, without diagnosis of hypertension; Z98.890 Other specified postprocedural states
CPT/HCPCS: 36415; 74177; 80053; 81003; 81025; 83690; 85025; 96374; 96375; 96376; 99283; 99284; J1170; Q9967; 81001; 87086

== ENCOUNTER 2019-12-05 16:26 | Emergency (ER) | payer OTHER ==
[2019-12-05 16:35] VITALS: BP 112/69
[2019-12-05] MEDS ORDERED: TETANUS/DIPHTHERIA/PERTUSSIS 0.5 ML SYRINGE IM ONE (16:45)
[2019-12-05] MEDS ORDERED: AMOX/CLAV 875 MG/125 MG TABLET PO STA (16:45)
--- NOTE | 2019-12-05 16:48 | ED Physician Documentation ---
History of Present Illness - Stated complaint Stated Complaint: DOG BITE - Chief complaint Chief Complaint: Wound - History obtained from History obtained from: Patient - History of Present Illness Timing: Last night Pain level max: 2 Pain level now: 1 - Additonal information Additional information: 44-year-old female presents to the emergency department for dog bite to the left hand. This occurred last night. It was an unknown dog. She states that she is unsure if her tetanus is up-to-date or not. No fevers. There is swelling to the area. She has a bandage in place. 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 HEENT: Myringotomy (tubes), Tonsil/Adenoidectomy - Present Medications Home Medications: Ambulatory Orders Medication Instructions Recorded Confirmed Gabapentin [Neurontin] 200 mg PO TID 10/19/18 10/19/18 clonazePAM [Clonazepam] 1 mg PO BID 10/19/18 10/19/18 tiZANidine [Zanaflex] 4 mg PO Q8H 10/19/18 10/19/18 Amox/Clav 875/125 [Augmentin] 1 each PO Q12H #20 tablet 12/05/19 - Allergies Allergies/Adverse Reactions: Allergies Allergy/AdvReac Type Severity Reaction Status Date / Time bee venom protein (honey bee) Allergy Edema Verified 04/28/18 00:27 codeine Allergy Itching Verified 04/28/18 00:26 hydrocodone Allergy Headache Verified 04/28/18 00:26 nickel Allergy Unknown Verified 04/28/18 00:26 - Social History Does the pt smoke?: Yes Smoking Status: Current every day smoker Does the pt drink ETOH?: Yes Does the pt have substance abuse?: No - Immunizations Immunizations are current?: Yes - POLST Patient has POLST: No PD ED PE NORMAL - Vitals Vital signs reviewed: Yes - General General: Alert and oriented X 3, No acute distress - HEENT HEENT: Moist mucous membranes - Neck Neck: Supple, no meningeal sign - Derm Derm: Warm and dry - Extremities Extremities: Other (L hand - abrasions present on the middle finger. slight ecchymosis to the dorsum with a puncture wound. ) - Neuro Neuro: Alert and oriented X 3 - Psych Psych: Normal mood, Normal affect Results - Vitals Vitals: Vital Signs - 24 hr 12/05/19 16:32 Temperature 36.5 C Heart Rate 83 Respiratory 14 Rate Blood Pressure 112/69 O2 Saturation 100 Oxygen O2 Source Room air PD MEDICAL DECISION MAKING - ED course Complexity details: considered differential, d/w patient ED course: Patient given a tetanus shot. Will place on Augmentin for home. Patient counseled regarding signs and symptoms for which I believe and urgent re- evaluation would be necessary. Patient with good understanding of and agreement to plan and is comfortable going home at this time This document was made in part using voice recognition software. While efforts are made to proofread this document, sound alike and grammatical errors may occur. Departure - Departure Disposition: 01 Home, Self Care Clinical Impression: Dog bite Qualifiers: Encounter type: initial encounter Qualified Code(s): W54.0XXA - Bitten by dog, initial encounter Condition: Good Instructions: ED Bite Animal General Follow-Up: RAMIRO GARCIA [Primary Care Provider] - As Needed Prescriptions: Amox/Clav 875/125 [Augmentin] 1 each PO Q12H #20 tablet Comments: Take all antibiotics until gone. Return if you worsen. Return especially for redness, swelling or drainage from the wound.
== END 2019-12-05 17:06 | disposition home or self-care (01) ==
LOC: ED 16:26
DX: S61.452A Open bite of left hand, initial encounter (principal); W54.0XXA Bitten by dog, initial encounter; Y92.007 Garden or yard of unspecified non-institutional (private) residence as the place of occurrence of the external cause; F17.200 Nicotine dependence, unspecified, uncomplicated
CPT/HCPCS: 90471; 90715; 99282; 99284; A9270

== ENCOUNTER 2020-04-25 15:09 | Outpatient (CLI) | payer OTHER ==
--- NOTE | 2020-04-26 11:34 | Mammography Report ---
BILATERAL DIGITAL SCREENING MAMMOGRAM 3D/2D: 04/25/2020 CLINICAL: Baseline exam. Routine screening. No prior exams were available for comparison. The tissue of both breasts is heterogeneously dense. T his may lower the sensitivity of mammography. There is a 0.7 cm oval equal density asymmetry in the right breast at 11 o'clock anterior depth. There is a 0.4 cm oval equal density asymmetry in the left breast posterior depth superior region see n on the mediolateral oblique view only. No other significant masses or calcifications are seen in either breast. IMPRESSION: INCOMPLETE: NEEDS ADDITIONAL IMAGING EVALUATION The 0.7 cm oval equal density asymmetry in the right breast at 11 o'clock anterior depth resembles a cyst or a lymph node and is indeterminate. Additional views with possible ultrasound are recommended . The 0.4 cm oval equal density asymmetry in the left breast posterior depth superior region seen on th e mediolateral oblique view only resembles a cyst or a lymph node and is indeterminate. Additional v iews with possible ultrasound are recommended. This exam was interpreted at Station ID: [id number]. NOTE: For mammograms, a report in lay terms will be sent to the patient. Approximately 15% of breast malignancies will not be visualized mammographically. In the management of a palpable breast mass, a negative mammogram must not discourage biopsy of a clinically suspicious lesion. Electronically Signed By: Gen Jo M.D. aty/:04/25/2020 17:41:36 ACR BI-RADS Category 0: Incomplete 3340F PARENCHYMAL PATTERN: (D) - The breast(s) demonstrate(s) heterogeneously dense fibroglandular latasha redd. BI-RADS CATEGORY: (0) - 0 Mammo and [place] [id number] Immediate follow-up LATERALITY: (B)
== END 2020-04-25 15:10 | disposition home or self-care (01) ==
LOC: DI 15:09
DX: Z12.31 Encounter for screening mammogram for malignant neoplasm of breast (principal); R92.8 Other abnormal and inconclusive findings on diagnostic imaging of breast
CPT/HCPCS: 77063; 77067

== ENCOUNTER 2020-05-05 07:21 | Outpatient (CLI) | payer OTHER ==
--- NOTE | 2020-05-06 09:33 | MRI Report ---
PROCEDURE: Cervical Spine W/O INDICATIONS: Shoulder pain and neck pain TECHNIQUE: Noncontrast sagittal T1 spin echo and T2 fast spin echo, sagittal STIR, foraminal oblique sagittal T2 fast spin echo, and axial gradient echo or T2 fast spin echo through the cervical spine. COMPARISON: None. FINDINGS: Image quality: Excellent. Alignment and Curvature: There is normal bony alignment. Bone Marrow: Marrow demonstrates normal overall signal. Spinal Cord: Visualized spinal cord has normal size and signal. No cerebellar tonsillar herniation. Paraspinous Soft Tissues: No paravertebral masses. Prevertebral soft tissues are normal in thicknes s. C2-C3: Normal in appearance. C3-C4: Normal in appearance. C4-C5: Central disc bulge and protrusion flattens and indents the ventral thecal sac. There is no ma ss effect upon the cord. Left uncovertebral spurring with trace narrowing of the left neural foramen. C5-C6: Normal in appearance. C6-C7: Normal in appearance. C7-T1: Normal in appearance. IMPRESSION: Mild degenerative changes at C4-C5. Reviewed by: Jhon Jim MD on 05/06/2020 9:32 AM PDT Approved by: Jhon Jim MD on 05/06/2020 9:32 AM PDT Station ID: [id number]
--- NOTE | 2020-05-06 09:35 | MRI Report ---
PROCEDURE: Thoracic Spine W/O INDICATIONS: Neck, back, and shoulder pain TECHNIQUE: Noncontrast sagittal T1 spine echo and T2 fast spin echo, sagittal STIR, axial T1 and T2 fast spin ec ho through the thoracic spine. COMPARISON: None. FINDINGS: Image quality: Excellent. Alignment and Curvature: There is normal bony alignment. Bone Marrow: Marrow is of normal overall signal. No acute vertebral body compression fractures. Spinal Cord: Visualized spinal cord is normal in size and signal. Paraspinous Soft Tissues: No paravertebral masses. Miscellaneous: On axial images, central canal and foramina appear widely patent at all scanned level s. IMPRESSION: No acute finding or significant degenerative changes. No finding to explain symptoms. Reviewed by: Jhon Jim MD on 05/06/2020 9:34 AM PDT Approved by: Jhon Jim MD on 05/06/2020 9:34 AM PDT Station ID: [id number]
== END 2020-05-05 07:22 | disposition home or self-care (01) ==
LOC: DI 07:21
PROVIDERS: ATTEND General Practice
DX: M50.221 Other cervical disc displacement at C4-C5 level (principal); M47.812 Spondylosis without myelopathy or radiculopathy, cervical region
CPT/HCPCS: 72141; 72146

== ENCOUNTER 2020-07-15 12:17 | Emergency (ER) | payer OTHER ==
[2020-07-15] MEDS ORDERED: clonazePAM 0.5 MG TABLET PO STA (12:51)
--- NOTE | 2020-07-15 12:54 | ED Physician Documentation ---
History of Present Illness - Stated complaint Stated Complaint: RAPID HEART RATE - Chief complaint Chief Complaint: MHE - History obtained from History obtained from: Patient - Additonal information Additional information: 45-year-old woman with history of trigeminal neuralgia and chronic anxiety presents with rapid heart rate that she thinks is related to anxiety. She is been having stressful time lately and feels like she has been having trouble with her heart rate going high. It is not painful and she is not short of breath, it is just uncomfortable and seems to be closely related to when she is feeling anxious. She takes Klonopin chronically, twice a day and took it this morning. Feels like more would be helpful but she cannot use it more often than normal. Denies chest pain, trouble breathing, calf pain or pedal edema. No personal or family history of heart disease or DVT/PE. 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 : None HEENT: None Psych: Anxiety, Post traumatic stress disorder Musculoskeletal: Chronic back pain, Other Derm: None - Past Surgical History Past Surgical History: Yes Ortho: Spine surgery /METAL MACHINE SETTER: Tubal ligation HEENT: Myringotomy (tubes), Tonsil/Adenoidectomy - Present Medications Home Medications: Ambulatory Orders Medication Instructions Recorded Confirmed Gabapentin [Neurontin] 200 mg PO TID 10/19/18 10/19/18 clonazePAM [Clonazepam] 1 mg PO BID 10/19/18 10/19/18 tiZANidine [Zanaflex] 4 mg PO Q8H 10/19/18 10/19/18 Amox/Clav 875/125 [Augmentin] 1 each PO Q12H #20 tablet 12/05/19 Propranolol [Inderal] 10 mg PO TID #30 tablet 07/15/20 clonazePAM [Klonopin] 1 mg PO BID PRN #15 tablet 07/15/20 - Allergies Allergies/Adverse Reactions: Allergies Allergy/AdvReac Type Severity Reaction Status Date / Time bee venom protein (honey bee) Allergy Edema Verified 07/15/20 12:31 codeine Allergy Itching Verified 07/15/20 12:31 hydrocodone Allergy Headache Verified 07/15/20 12:31 nickel Allergy Unknown Verified 07/15/20 12:31 - Social History Does the pt smoke?: Yes Smoking Status: Current every day smoker Does the pt drink ETOH?: No Does the pt have substance abuse?: No - Immunizations Immunizations are current?: Yes - POLST Patient has POLST: No PD ED PE NORMAL - Vitals Vital signs reviewed: Yes - General General: Other (Monitor she is in normal sinus rhythm and occasionally becomes tachycardic when she is talking about stressful things. She is tearful at times.) - HEENT HEENT: PERRL, EOMI - Neck Neck: Supple, no meningeal sign, No bony TTP - Cardiac Cardiac: RRR, No murmur - Respiratory Respiratory: No respiratory distress, Clear bilaterally - Abdomen Abdomen: Non tender - Extremities Extremities: No edema, No calf tenderness / cord - Neuro Neuro: Alert and oriented X 3, Normal speech Results - Vitals Vitals: Vital Signs - 24 hr 07/15/20 07/15/20 07/15/20 12:20 12:41 13:19 Temperature 36.8 C Heart Rate 121 H 93 86 Respiratory 16 20 17 Rate Blood Pressure 134/72 H 114/74 104/62 O2 Saturation 96 96 95 07/15/20 13:56 Temperature 36.7 C Heart Rate 84 Respiratory 18 Rate Blood Pressure 100/59 L O2 Saturation 97 Oxygen O2 Source Room air - EKG (time done) 1230 Rate: Rate (enter#) (91) Rhythm: NSR Coleridge: Normal Intervals: Normal OR QRS: Normal Ischemia: Normal ST segments Computer interpretation: Agree with computer - Labs Labs: Laboratory Tests 07/15/20 07/15/20 07/15/20 13:00 13:00 13:00 WBC 5.1 RBC 4.21 Hgb 13.0 Hct 39.3 MCV 93.3 MCH 30.9 MCHC 33.1 RDW 13.2 Plt Count 294 MPV 9.1 Neut # (Auto) 3.6 Lymph # (Auto) 0.9 L Towner # (Auto) 0.5 Eos # (Auto) 0.0 Baso # (Auto) 0.0 Absolute Nucleated RBC 0.00 Nucleated RBC % 0.0 Sodium 137 Potassium 3.6 Chloride 104 Carbon Dioxide 25 Anion Gap 8.0 BUN 9 Creatinine 0.6 Estimated GFR (MDRD) 109 Glucose 169 H Calcium 9.2 Total Bilirubin 0.4 AST 17 ALT 14 Alkaline Phosphatase 44 Total Protein 6.5 L Albumin 4.2 Globulin 2.3 Albumin/Globulin Ratio 1.8 Lipase 26 TSH 0.47 Urine Color Urine Clarity Urine pH Ur Specific Desdemona Urine Protein Urine Glucose (UA) Urine Ketones Urine Occult Blood Urine Nitrite Urine Bilirubin Urine Urobilinogen Ur Leukocyte Esterase Ur Microscopic Review Urine Culture Comments Urine HCG, Qual 07/15/20 13:00 WBC RBC Hgb Hct MCV MCH MCHC RDW Plt Count MPV Neut # (Auto) Lymph # (Auto) Towner # (Auto) Eos # (Auto) Baso # (Auto) Absolute Nucleated RBC Nucleated RBC % Sodium Potassium Chloride Carbon Dioxide Anion Gap BUN Creatinine Estimated GFR (MDRD) Glucose Calcium Total Bilirubin AST ALT Alkaline Phosphatase Total Protein Albumin Globulin Albumin/Globulin Ratio Lipase TSH Urine Color YELLOW Urine Clarity CLEAR Urine pH 6.5 Ur Specific Desdemona <=1.005 Urine Protein NEGATIVE Urine Glucose (UA) NEGATIVE Urine Ketones NEGATIVE Urine Occult Blood NEGATIVE Urine Nitrite NEGATIVE Urine Bilirubin NEGATIVE Urine Urobilinogen 0.2 (NORMAL) Ur Leukocyte Esterase NEGATIVE Ur Microscopic Review NOT INDICATED Urine Culture Comments NOT INDICATED Urine HCG, Qual NEGATIVE PD MEDICAL DECISION MAKING - ED course ED course: 45-year-old woman presents with tachycardia associated with anxiety. Medical testing was negative except for modest hyperglycemia in a nonfasting state and this was discussed with her. We will trial some extra clonazepam and propranolol. Departure - Departure Disposition: 01 Home, Self Care Clinical Impression: Anxiety, Sinus tachycardia Condition: Good Record reviewed to determine appropriate education?: Yes Instructions: ED Stress React Prescriptions: Propranolol [Inderal] 10 mg PO TID #30 tablet clonazePAM [Klonopin] 1 mg PO BID PRN #15 tablet PRN Reason: Anxiety Comments: Your blood sugar was on the high side today and probably needs to be rechecked with fasting labs by your physician. Otherwise everything looked okay. You can try both the propranolol and the extra clonazepam and see which is more effective for you and then talk with your doctor about refills. Return for new or worsening symptoms. Discharge Date/Time: 07/15/20 14:00
[2020-07-15 13:09] LABS: BASOPHILS % (AUTO) 0.8 %; EOSINOPHILS % (AUTO) 0.6 %; LYMPHOCYTES # (AUTO) 0.9 10^3/uL (1.5-3.5); LYMPHOCYTES % (AUTO) 18.3 %; MEAN CORPUSCULAR HEMOGLOBIN 30.9 pg (27.0-31.0); MEAN CORPUSCULAR HGB CONC 33.1 g/dL (32.0-36.0); MEAN CORPUSCULAR VOLUME 93.3 fL (81.0-99.0); MEAN PLATELET VOLUME 9.1 fL (7.9-10.8); MONOCYTES # (AUTO) 0.5 10^3/uL (0.0-1.0); MONOCYTES % (AUTO) 9.8 %; NEUTROPHILS # (AUTO) 3.6 10^3/uL (1.5-6.6); NEUTROPHILS % (AUTO) 70.3 %; PLT - PLATELET COUNT 294 10^3/uL (130-450); RED BLOOD COUNT 4.21 10^6/uL (4.20-5.40); RED CELL DISTRIBUTION WIDTH 13.2 % (12.0-15.0); WHITE BLOOD COUNT 5.1 x10^3/uL (4.8-10.8)
[2020-07-15 13:13] LABS: BILIRUBIN,URINE NEGATIVE (NEGATIVE); GLUCOSE, URINE (UA) NEGATIVE (NEGATIVE); KETONES,URINE (UA) NEGATIVE (NEGATIVE); LEUKOCYTE ESTERASE, URINE NEGATIVE (NEGATIVE); NITRITE,URINE NEGATIVE (NEGATIVE); OCCULT BLOOD,URINE NEGATIVE (NEGATIVE); PH,URINE 6.5 PH (5.0-7.5); PROTEIN,URINE NEGATIVE (NEGATIVE); UROBILINOGEN,URINE 0.2 (NORMAL) E.U./dL (NORMAL)
[2020-07-15 13:15] LABS: CLARITY,URINE CLEAR (CLEAR); HCG UR QUAL NEGATIVE
[2020-07-15 13:21] LABS: ALBUMIN 4.2 g/dL (3.2-5.5); ALBUMIN/GLOBULIN RATIO 1.8 (1.0-2.2); BILIRUBIN,TOTAL 0.4 mg/dL (0.2-1.0); CALCIUM 9.2 mg/dL (8.5-10.3); CREATININE 0.6 mg/dL (0.4-1.0); TOTAL PROTEIN 6.5 g/dL (6.7-8.2)
[2020-07-15 13:56] VITALS: BP 100/59
== END 2020-07-15 14:00 | disposition home or self-care (01) ==
LOC: ED 12:17
DX: F41.9 Anxiety disorder, unspecified (principal); R00.0 Tachycardia, unspecified; R73.9 Hyperglycemia, unspecified; F17.200 Nicotine dependence, unspecified, uncomplicated
CPT/HCPCS: 36415; 81003; 81025; 83690; 93005; 99283; 99284; A9270; 80053; 81001; 84443; 85025; 87086